=== PATIENT | female | born 1965 | race Caucasian/White ===

== ENCOUNTER 2018-03-08 11:55 | Day surgery (SDC) | payer BC ==
[2018-03-08] MEDS ORDERED: PROPOFOL 10 MG/ML VIAL IV ONE (11:56)
[2018-03-08] MEDS ORDERED: LIDOCAINE 2% MDV (20MG/ML) 20ML VIAL IV ONE (11:56)
[2018-03-08] MEDS ORDERED: MIDAZOLAM HCL 2MG/2ML VIAL IV ONE (11:56)
--- NOTE | 2018-03-09 13:30 | Operative Note ---
DATE OF SURGERY: 03/08/2018 OPERATION: COLONOSCOPY to the cecum and terminal ileum. INDICATION: Recurring right lower quadrant pain. The patient also is due for a screening colonoscopy, as her last examination was 11 years ago. She had some stool irregularity. ANESTHESIA: Intravenous sedation was administered by the department of anesthesiology and included Diprivan titrated to effect. PROCEDURE: Following informed consent from this alert individual including a discussion of the risks and benefits of the procedure and an opportunity for the patient to ask questions, the patient was in the left lateral decubitus position. A digital rectal examination was performed. No abnormalities were noted. Following this, the Olympus [id number] video colonoscope was inserted into the rectum without resistance. The rectal mucosa had a normal appearance with normal folds and distensibility. The colonoscope was advanced up through the bowel to the level of the cecum without much difficulty. Throughout the bowel the mucosa appeared normal, the folds were normal, and the bowel was fairly well distensible. The cecum was defined by noting the appendiceal orifice and cecal pouch. The ileocecal valve was noted. The terminal ileum was easily cannulated and found to be completely unremarkable. From the base of the cecum, the colonoscope was then withdrawn back through the bowel reexamining the mucosa upon withdrawal. No abnormalities were noted until the rectum was reached. Within the rectum, there were small internal hemorrhoids noted on retroflexion. No other changes appreciated. The endoscope was straightened and withdrawn. The colon preparation was good. The patient tolerated the procedure well and was returned to the recovery area in stable condition. IMPRESSION: 1. Small internal hemorrhoids. 2. Otherwise normal colon and terminal ileum. RECOMMENDATIONS: The patient was advised to follow up with Arnulfo Mitchell DO. She should have recheck colonoscopy in 10 years' time or sooner if problems arise. As always, thank you for allowing me to participate in the care of your patient. CC: Nhan MOROCHO
== END 2018-03-08 13:52 | disposition home or self-care (01) ==
LOC: HOP 11:55
PROVIDERS: ATTEND Internal Medicine Gastroenterology
DX: R10.31 Right lower quadrant pain (principal); R19.4 Change in bowel habit; K64.8 Other hemorrhoids; D68.61 Antiphospholipid syndrome; F32.9 Major depressive disorder, single episode, unspecified